=== PATIENT | male | born 1940 | race Caucasian/White ===

== ENCOUNTER → 2016-08-18 | Outpatient (CLI) | payer MEDICARE, OTHER ==
--- NOTE | ~2016-08-18 | PUL ---
PATIENT'S NAME: LARISA WHITE [facility] AGE: 75 Y [address] ROOM: [place] [address] LOCATION: [facility] ADMIT DATE: 08/18/2016 Pulmonary DISCHARGE DATE: FAMILY PHYSICIAN: Jason Jacobs MD ATTENDING PHYSICIAN: Jason Jacobs NAME OF PROCEDURE: Sleep study PROCEDURE DATE: 08/18/2016 TECH: MAGALIS Del Castillo TEST #: [facility] [place] [id number] TECHNICAL PARAMETERS: The patient was studied using International 10/20 measuring system. While the patient was studied, there was continuous monitoring of EEG (8 leads), EOG (2 leads), EKG (3 leads), submental EMG (3 leads), tibial (4 leads), respiratory inductive plethysmography (RIP) for thoracic and abdominal effort, oral and nasal airflow with a thermocouple and pressure transducer, and oximetry. The environmental laboratory technician also performed visual and auditory observations noting things like body position, patient's status, breath sounds, artifact, snoring level and patient comments. Continuous sound was monitored using a 2-way speaker system and video monitoring was performed using an infrared camera. Review of the entire study was performed epoch by epoch utilizing a single epoch and multiple epoch capability sleep system. MEDICAL HISTORY: Patient is a 75-year-old gentleman with daytime sleepiness and snoring. SLEEP STAGE SUMMARY: The patient was studied for 472 minutes of which he slept 340 minutes. He fell asleep in 28 minutes and slept for 72% of the night. Sleep architecture revealed a decline in slow wave and REM sleep. RESPIRATORY SUMMARY: Oxygen saturations ranged from 84-91%. There were no apneas and 12 hypopneas for an apnea/hypopnea index normal at 2.1 events per hour. EKG SUMMARY: Average heart rates 55 beats per minute. LIMB MOVEMENT SUMMARY: No clinically relevant periodic limb movements were noted. SUMMARY: No significant obstructive sleep apnea. There was significant nocturnal hypoxemia with saturations below 88% for greater than 5 minutes. PATIENT'S NAME: LARISA WHITE [facility] AGE: 75 Y [address] ROOM: [place] [address] LOCATION: [facility] ADMIT DATE: 08/18/2016 Pulmonary DISCHARGE DATE: FAMILY PHYSICIAN: Jason Jacobs MD ATTENDING PHYSICIAN: Jason Jacobs PLAN: Patient will receive results from the ordering provider. MD JASMIN NAVA/ /[id number] dtt: 08/31/16 0827 , Lang Waddell dtd: 08/23/16 1617
== END | disposition disaster alternative care site (69) ==
LOC: GSLP 19:52
DX: G47.9 Sleep disorder, unspecified (principal); G47.36 Sleep related hypoventilation in conditions classified elsewhere